=== PATIENT | female | born 1950 | race Caucasian/White ===

== ENCOUNTER → 2022-08-27 | Outpatient (CLI) | payer MEDICARE ==
[2022-08-27 11:56] LABS: Creatinine,Urine Random 114.6 mg/dL; Protein/Creatinine Ratio,Urine 0.122
[2022-08-27 16:04] LABS: Basophils % (A) 1.1 %; Eosinophils # (A) 0.26 X 10*3/uL (0.04-0.35); Eosinophils % (A) 2.8 %; HCT 39.2 % (37.2-46.3); HGB 12.3 g/dL (12.0-15.0); Immature Grans, Automated 0.4 %; Lymphocytes # (A) 2.05 X 10*3/uL (0.90-5.00); Lymphocytes % (A) 21.9 %; MCHC 31.4 g/dL (32.0-37.0); MCV 79.7 fL (80.0-97.0); Mean Platelet Volume 10.6 fL (9.5-12.2); Monocytes # (A) 0.69 X 10*3/uL (0.20-1.00); Monocytes % (A) 7.4 %; NRBC Per 100 WBC 0 /100 WBCS (0.0-0.0); Neutrophils # (A) 6.21 X 10*3/uL (1.80-7.70); Neutrophils % (A) 66.4 %; Platelet Count 303 X 10*3/uL (140-440); RBC 4.92 X 10*6/uL (4.10-5.20); RDW 21.8 % (11.5-14.5); WBC 9.35 X 10*3/uL (4.50-10.00)
[2022-08-27 16:39] LABS: ALT 18 U/L (8-44); AST 18 U/L (13-35); African American GFR (CKD) 108.4 (60.0-200.0); Albumin 4.1 g/dL (3.8-4.9); Alkaline Phosphatase 73 U/L (41-126); BUN/Creat Ratio 10.09 Ratio (12.00-20.00); Blood Urea Nitrogen 5.8 mg/dL (9.0-27.0); Carbon Dioxide 24.8 mmol/L (20.0-27.5); Chloride 105 mmol/L (96-109); Chol/HDL Ratio 2.97 Ratio; Globulin 2.2 g/dL (1.6-3.3); Glucose 137 mg/dL (70-110); LDL Cholesterol,Calculated 31.2 mg/dL (0.0-131.0); Non-African American GFR(CKD) 93.6 (60.0-200.0); Potassium 4.2 mmol/L (3.5-5.5); Sodium 142 mmol/L (135-145); Total Protein 6.3 g/dL (6.2-8.2)
== END | disposition home or self-care (01) ==
LOC: LABWHC1 11:01
PROVIDERS: ATTEND Family Medicine
DX: I10 Essential (primary) hypertension (principal); E11.9 Type 2 diabetes mellitus without complications; E78.5 Hyperlipidemia, unspecified
CPT/HCPCS: 36415; 80053; 80061; 82570; 83036; 84156; 85025

== ENCOUNTER → 2023-04-26 | Outpatient (CLI) | payer BC ==
[2023-04-26 15:10] LABS: Basophils # (A) 0.11 X 10*3/uL (0.00-0.10); Basophils % (A) 1.2 %; Eosinophils # (A) 0.25 X 10*3/uL (0.04-0.35); Eosinophils % (A) 2.7 %; HCT 45.4 % (37.2-46.3); HGB 13.5 g/dL (12.0-15.0); Immature Grans, Automated 0.4 %; Lymphocytes # (A) 2.07 X 10*3/uL (0.90-5.00); Lymphocytes % (A) 22.3 %; MCH 28.2 pg (27.0-32.0); MCHC 29.7 g/dL (32.0-37.0); MCV 94.8 fL (80.0-97.0); Mean Platelet Volume 10.4 fL (9.5-12.2); Monocytes # (A) 0.76 X 10*3/uL (0.20-1.00); Monocytes % (A) 8.2 %; NRBC Per 100 WBC 0 /100 WBCS (0.0-0.0); Neutrophils # (A) 6.04 X 10*3/uL (1.80-7.70); Neutrophils % (A) 65.2 %; Platelet Count 266 X 10*3/uL (140-440); RBC 4.79 X 10*6/uL (4.10-5.20); RDW 18.3 % (11.5-14.5); WBC 9.27 X 10*3/uL (4.50-10.00)
[2023-04-26 23:01] LABS: ALT 18 U/L (8-44); AST 17 U/L (13-35); African American GFR (CKD) 105.3 (60.0-200.0); Albumin 4.2 g/dL (3.8-4.9); Albumin/Globulin Ratio 1.73 (1.60-3.17); Alkaline Phosphatase 83 U/L (41-126); Blood Urea Nitrogen 10.2 mg/dL (9.0-27.0); Calcium 9.7 mg/dL (8.7-10.3); Carbon Dioxide 24.9 mmol/L (20.0-27.5); Chloride 105 mmol/L (96-109); Ferritin 21.6 ng/mL (10.0-291.0); Globulin 2.4 g/dL (1.6-3.3); Glucose 109 mg/dL (70-110); Iron 36 ug/dL (50-170); LDL Cholesterol,Calculated 49.2 mg/dL (0.0-131.0); Non-African American GFR(CKD) 90.8 (60.0-200.0); Potassium 4.6 mmol/L (3.5-5.5); Sodium 142 mmol/L (135-145); Total Protein 6.7 g/dL (6.2-8.2)
== END | disposition home or self-care (01) ==
LOC: LABWHC1 11:32
PROVIDERS: ATTEND Family Medicine
DX: E11.9 Type 2 diabetes mellitus without complications (principal); E78.5 Hyperlipidemia, unspecified; D50.9 Iron deficiency anemia, unspecified
CPT/HCPCS: 36415; 80053; 80061; 82043; 82570; 82728; 83036; 83540; 85025

== ENCOUNTER → 2023-06-23 | Outpatient (CLI) | payer BC ==
[2023-06-23 18:19] LABS: Basophils # (A) 0.09 X 10*3/uL (0.00-0.10); Basophils % (A) 0.8 %; Eosinophils # (A) 0.08 X 10*3/uL (0.04-0.35); Eosinophils % (A) 0.7 %; HGB 14.4 d/dL (12.0-15.0); Lymphocytes # (A) 1.62 X 10*3/uL (0.90-5.00); Lymphocytes % (A) 13.9 %; MCH 28.7 pg (27.0-32.0); MCHC 31.3 d/dL (32.0-37.0); MCV 91.6 FL (80.0-97.0); Mean Platelet Volume 11.9 FL (9.5-12.2); Monocytes # (A) 0.47 X 10*3/uL (0.20-1.00); NRBC Per 100 WBC 0 X 10*3/uL (0.00-0.01); Neutrophils # (A) 9.33 X 10*3/uL (1.80-7.70); Neutrophils % (A) 80.3 %; Platelet Count 243 X 10*3/uL (140-440); RBC 5.02 X 10*6/uL (4.10-5.20); RDW 19.6 % (11.5-14.5); WBC 11.62 X 10*3/uL (4.50-10.00)
[2023-06-23 18:42] LABS: % Iron Saturation 23.34 (12.00-45.00); BUN/Creat Ratio 12.71 Ratio (12.00-20.00); Blood Urea Nitrogen 8.9 mg/dL (9.0-27.0); Calcium 9.7 mg/dL (8.7-10.3); Carbon Dioxide 23.9 mmol/L (21.6-31.8); Chloride 106 mmol/L (96-109); Ferritin 26.6 ng/mL (10.0-291.0); Glucose 137 mg/dL (70-110); Iron 88 UG/DL (50-170); Potassium 4.9 mmol/L (3.5-5.5); Sodium 142 mmol/L (135-145); T4, Free (Free Thyroxine) 1.36 ng/dL (0.80-1.80); Total Iron Binding Capacity 377 UG/DL (228-460)
== END | disposition home or self-care (01) ==
LOC: LABWHC1 11:15
PROVIDERS: ATTEND Family Medicine
DX: Z01.812 Encounter for preprocedural laboratory examination (principal); E11.9 Type 2 diabetes mellitus without complications; D50.9 Iron deficiency anemia, unspecified; R53.83 Other fatigue
CPT/HCPCS: 36415; 80048; 82728; 83036; 83540; 83550; 84439; 84443; 84481; 85025; 85045

== ENCOUNTER 2023-06-29 08:14 | Day surgery (SDC) | payer BC ==
--- NOTE | 2023-06-28 10:11 | P.HPOR ---
History of Present Illness H&P Date: 06/28/23 Subjective: This is a 72 year old female that presents today for follow up evaluation regarding a several month history of bilateral wrist and thumb pain. She has pain with any movement of the wrist and has tried bracing with some relief but finds the braces to be restrictive. She has also noticed left index and middle fingertip numbness that has been worsening over the past several months, she has a history of b/l open carpal tunnel release [address] Trejo. She denies any injury or inciting event. She underwent and left first dorsal compartment injection several months prior and noticed only 2-3 weeks of symptoms relief. Physical Examination: LUE: AIN/PIN/Radial/Ulnar/Median motor intact. Radial/Ulnar/Median SILT. 2+/4 Radial/Ulnar pulses palpated. 5/5 APB, 5/5 FDI. Positive Finkelsteins, Positive CMC grind, positive Durkan's compression. Imaging: X-Rays of the left hand 3V reviewed from prior visit demonstrate advanced thumb CMC arthritis, diffuse interphalangeal arthritic changes in all digits. Impression: 1.) Left DeQuervains tenosynovitis. 2.) Left recurrent carpal tunnel syndrome. 3.) Left thumb CMC arthritis, severe. Plan: Diagnosis and treatment options were discussed with the patient. She wishes to proceed with surgical intervention due to failed conservative treatment for her left Dequervains as well as her recurrent carpal tunnel syndrome with a left first dorsal compartment release and left revision open carpal tunnel release. Risks and benefits of surgery including bleeding, infection, damage to surrounding tissue, need for further surgery, residual numbness were discussed and the patient wished to go forward with surgery. The patient was agreeable with this plan. CC: Koby Arndt D.O. -Benjamin Higgins DO Orthopedic Hand/Upper Extremity Surgeon Past Medical History Past Medical History: Chest Pain / Angina, Diabetes Mellitus, Hyperlipidemia, Hypertension, Osteoarthritis (OA) Additional Past Medical History / Comment(s): hepatitis A and B 1984 , not a carrier. IBD History of Any Multi-Drug Resistant Organisms: None Reported Past Surgical History: Heart Catheterization With Stent, Hysterectomy, Joint Replacement Additional Past Surgical History / Comment(s): lumbar fusion x3, total rt knee, colonoscopy. rt rotator cuff sugery, 7 angioplasty and stents. all in rt coranary artery. lithotripsy Past Anesthesia/Blood Transfusion Reactions: Postoperative Nausea & Vomiting (PONV) Additional Past Anesthesia/Blood Transfusion Reaction / Comment(s): only autologus blood. Date of Last Stent Placement:: 2020 Smoking Status: Former smoker, Heavy tobacco smoker - Past Family History Father Family Medical History: Myocardial Infarction (MT) Additional Family Medical History / Comment(s): at 43yr Mother Additional Family Medical History / Comment(s): rt sided heart failure. 65yr Medications and Allergies Home Medications Medication Instructions Recorded Confirmed Type Acetaminophen-Codeine 300-30mg 2 tab PO BID 06/23/23 06/23/23 History [Tylenol w/codeine #3] Atorvastatin Calcium [Lipitor] 80 mg PO HS 06/23/23 06/23/23 History Cholecalciferol [Vitamin D3 (25 50 mcg PO DAILY 06/23/23 06/23/23 History Mcg = 1000 Iu)] Clopidogrel [Plavix] 75 mg PO DAILY 06/23/23 06/23/23 History Gabapentin 300 mg PO BID 06/23/23 06/23/23 History INSULIN LISPRO (humaLOG) [humaLOG] 0 units SQ DIRECTED 06/23/23 06/23/23 History Insulin Glargine [Lantus Vial] 25 unit SQ HS 06/23/23 06/23/23 History Isosorbide Mononitrate ER [Imdur] 60 mg PO DAILY 06/23/23 06/23/23 History [place]-3 Fatty Acids [[place]-3] 2,000 mg PO DAILY 06/23/23 06/23/23 History Unk Co Q10 1 tab PO DAILY 06/23/23 06/23/23 History Unk Multi Vitamin 1 tab PO DAILY 06/23/23 06/23/23 History amLODIPine 10 mg PO DAILY 06/23/23 06/23/23 History metFORMIN HCL 1,000 mg PO BID 06/23/23 06/23/23 History Allergies Allergy/AdvReac Type Severity Reaction Status Date / Time diphenhydramine Allergy Severe muscle Verified 06/23/23 14:15 [From Benadryl] cramping acetaminophen [From Harwood] Allergy Rash/Hives Verified 06/23/23 14:15 cefuroxime [From Ceftin] Allergy Anaphylaxis Verified 06/23/23 14:15 ciprofloxacin [From Cipro] Allergy Rash/Hives Verified 06/23/23 14:15 cobalt Allergy erythema Verified 06/23/23 14:15 and drainage hydrocodone [From Harwood] Allergy Rash/Hives Verified 06/23/23 14:15 nickel Allergy erythema Verified 06/23/23 14:15 and drainage Penicillins Allergy Rash/Hives Verified 06/23/23 14:15 Sulfa (Sulfonamide Allergy Rash/Hives Verified 06/23/23 14:15 Antibiotics) tetracycline Allergy Rash/Hives Verified 06/23/23 14:15 Beta-Blockers AdvReac severe Verified 06/23/23 14:15 (Beta-Adrenergic Bloc bradycardia Physical Examination Osteopathic Statement: *. No significant issues noted on an osteopathic structural exam other than those noted in the History and Physical/Consult.
[~2023-06-29 08:14] MED LIST: Pre Op ABX Message 1 EACH MISC MISCELLANE ONE
[2023-06-29] MEDS ORDERED: fentaNYL (PF) 50 MCG/ML 2 ML AMP IV PRN (08:26)
[2023-06-29] MEDS ORDERED: LIDOCAINE 1% (10MG/ML) FOR IV START INTRADERMA PRN (08:26)
[2023-06-29] MEDS ORDERED: ONDANSETRON 4 MG/2 ML VIAL IVP ONE (08:26)
[2023-06-29] MEDS ORDERED: LACTATED RINGERS 1,000 ML IV SCH (08:26)
[2023-06-29 08:57] LABS: Glucose,Whole Blood 138 mg/dL (70-110)
[2023-06-29] MEDS ORDERED: LIDOCAINE 2% INJ 20 MG/ML SQ ONE ×2 (08:57→09:06)
[2023-06-29] MEDS ORDERED: BUPIVACAINE (PF) 0.5% 30 ML VIAL SQ ONE ×2 (08:58→09:06)
[2023-06-29] MEDS ORDERED: MIDAZOLAM 2 MG/2 ML VIAL ONE (08:59)
[2023-06-29] MEDS ORDERED: PROPOFOL 10 MG/ML 20 ML VIAL IV ONE (08:59)
[2023-06-29] MEDS ORDERED: fentaNYL (PF) 50 MCG/ML 2 ML AMP ONE (08:59)
[2023-06-29 10:03] VITALS: RESP 16; TEMP 97.1
[2023-06-29 10:14] LABS: Glucose,Whole Blood 137 mg/dL (70-110)
[2023-06-29 10:30] VITALS: BP 122/70; PULSE 70
--- NOTE | 2023-06-29 11:19 | P.OP ---
Date of Procedure: 06/29/23 Preoperative Diagnosis: 1.) Left recurrent carpal tunnel syndrome 2.) Left DeQuervains tenosynovitis Postoperative Diagnosis: 1.) Left recurrent carpal tunnel syndrome 2.) Left DeQuervains tenosynovitis Procedure(s) Performed: 1.) Left revision open carpal tunnel release 2.) Left first dorsal compartment release Anesthesia: MAC Surgeon: Benjamin Higgins Estimated Blood Loss (ml): 0 Pathology: none sent Condition: stable Disposition: PACU Description of Procedure: This is a 72 year old female who presents today for a left first dorsal compartment release and revision open carpal tunnel release after having failed conservative treatment. Risks and benefits of surgery were discussed with the patient including bleeding, damage to surrounding tissue, infection, need for further surgery as well as risks of anesthesia including pulmonary embolism and even and the patient wished to proceed with surgical intervention. The patients was seen in the pre-operative area by myself. Consent and H&P were completed and updated. The correct extremity was marked in the pre-operative area by myself and all other questions were answered. Operative Narrative: The patient was brought to the operating room by the department of anesthesia. They remained on the portable stretcher and a rolling hand table was brought to the side of the operative extremity. The patient was then drifted off to sleep by the department of anesthesia. A nonsterile tourniquet was then applied to the operative extremity and the left upper extremity was then prepped and draped in normal sterile fashion. Pre-operative time out was performed indicating the correct patient, procedure and laterality. All in the room agreed. MAC anesthesia was utilized and a 50:50 mixture of 1% Lidocaine and 0.5% bupivacaine was injected into the subcutaneous tissues of the radial wrist skin, 8ccs total. Pre-operative antibiotics were given prior to skin incision. The operative extremity was the exsanguinated with an esmarch bandage and the tourniquet was inflated to 250mmHg. 15 blade scalpel was utilized to make a longitudinal incision on the palmar skin in line with the radial boarder of the ring finger to a point distally at the intersection of Kaplans cardinal line overlying the patients previous incision. Heiss retractor was utilized to spread subcutaneous tissue and scalpel was used to cut through the superficial palmar fascia to reveal the transverse carpal ligament. The transverse carpal ligament was then sharply incised in line with the incision and tenotomy scissors were used to spread distally and the distal portion of the transverse carpal ligament was released using tenotomy scissors from distal to proximal under direct visualization. The median nerve was directly visualized and was intact and found to be compressed with an hourglass appearance. Proximal fascia of the distal forearm was also released under direct visualization taking care to preserve the palmar cutaneous branch of the median nerve. The wound was then closed with 4-0 nylon suture in a horizontal mattress fashion. 15 blade scalpel was used to make a horizontal skin incision centered over the first dorsal compartment of the left wrist. Blunt dissection was taken down to the proximal edge of the first dorsal compartment while taking care to identify and protect branches of the superficial radial sensory nerve. The first dorsal compartment was released in its entirety from proximal to distal. APL and EPB tendons were identified and a seperate compartment was identified and released in it's entirety. Skin closure was performed with 4-0 nylon suture. Sterile soft dressing was applied consisting of 4x4's cast padding and an jackie wrap. The patient was then woken by the department of anesthesia and transferred to PACU in stable condition. Benjamin Higgins D.O. Orthopedic Hand/Upper Extremity Surgeon
== END 2023-06-29 10:50 | disposition home or self-care (01) ==
LOC: OR 08:14
PROVIDERS: ATTEND Orthopaedic Surgery Hand Surgery
DX: G56.02 Carpal tunnel syndrome, left upper limb (principal); M65.4 Radial styloid tenosynovitis [de Quervain]; E11.9 Type 2 diabetes mellitus without complications; I10 Essential (primary) hypertension; E78.5 Hyperlipidemia, unspecified; M19.90 Unspecified osteoarthritis, unspecified site; Z98.890 Other specified postprocedural states; Z87.891 Personal history of nicotine dependence; Z82.49 Family history of ischemic heart disease and other diseases of the circulatory system; Z79.899 Other long term (current) drug therapy; Z79.4 Long term (current) use of insulin; Z79.02 Long term (current) use of antithrombotics/antiplatelets; Z88.1 Allergy status to other antibiotic agents
CPT/HCPCS: 64721; 25000; J2001; J2250; J2405; J3010; J2704; J0665

== ENCOUNTER → 2024-05-04 | Outpatient (CLI) | payer MEDICARE ==
--- NOTE | 2024-05-14 16:05 | CT ---
EXAMINATION TYPE: CT sinus wo con CT DLP: 538.7 mGycm, Automated exposure control for dose reduction was used. DATE OF EXAM: 05/04/2024 3:47 PM COMPARISON: . CLINICAL INDICATION:Female, 73 years old with history of J32.0 CHRONIC MAXILLARY SINUSITIS; , Chronic sinusitis TECHNIQUE: Multiple thin axial images were obtained through the paranasal sinuses without the use of IV contrast. Additional coronal and sagittal reformatted images were submitted for evaluation. Contrast used: none Oral contrast used: none FINDINGS: Frontal sinuses: Normally developed and aerated. Frontal Recess: Clear Maxillary Sinuses: Normally developed and aerated. Surgical sinuplasty changes are present bilatera lly. Maxillary Infundibula(OMC): Clear, Surgical sinuplasty changes are present bilaterally.. Ethmoid sinuses: Normally developed and aerated. Ethmoidal notch: Sphenoid sinuses: Normally developed and aerated. There is sphenoid sinus pneumatization without evid ence of dehiscence. No dehiscence of carotid canal. No evidence of optic nerve dehiscence within the sphenoid sinus. Sphenoethmoidal recesses: Clear. Nasal septum: Within normal limits.. Nasal Turbinates: Within normal limits. Mastoid air cells & middle ears: The air cells are clear. The middle ears are grossly unremarkable. Modified Soft tissues & Brain: Partially seen without gross abnormality. Globes are intact. Other: Cribriform plate demonstrates symmetric cribriform plate. No evidence of bony dehiscence of skull ba se. Lamina papyracea is intact without evidence of remote orbital fracture or orbital prolapse into the e thmoid sinus. IMPRESSION: 1. No significant mucosal sinus disease. 2. The ostiomeatal units, frontonasal and sphenoethmoidal recesses are clear. Surgical sinuplasty ch anges are present bilaterally.
== END | disposition home or self-care (01) ==
LOC: RADCTMAIN 15:33
PROVIDERS: ATTEND Otolaryngology
DX: J32.0 Chronic maxillary sinusitis (principal)
CPT/HCPCS: 70486